=== PATIENT | female | born 1945 | race Caucasian/White ===

== ENCOUNTER → 2019-10-12 | Outpatient (CLI) | payer MEDICARE, OTHER ==
[2019-10-12 08:08] LABS: BASO % 0 % (0-3); EOS # 0.2 x10^3/uL (0.0-0.7); EOS % 3 % (0-3); HEMATOCRIT 44.7 % (36.0-47.0); HEMOGLOBIN 14.8 g/dL (12.0-15.5); LYMPH % 13 % (24-48); MEAN CORPUSCULAR HEMOGLOBIN 31 pg (25-35); MEAN CORPUSCULAR HGB CONC 33 g/dL (31-37); MEAN CORPUSCULAR VOLUME 94 fL (79-100); MONO # 0.7 x10^3/uL (0.0-1.1); MONO % 8 % (0-9); NEUT # 6.2 x10^3uL (1.8-7.7); NEUT % 76 % (31-73); PLATELET COUNT 202 x10^3/uL (140-400); RED BLOOD COUNT 4.76 x10^6/uL (3.50-5.40); RED CELL DISTRIBUTION WIDTH 13.2 % (11.5-14.5); WHITE BLOOD COUNT 8.2 x10^3/uL (4.0-11.0)
[2019-10-12 08:17] LABS: ALBUMIN 3.8 g/dL (3.4-5.0); ALBUMIN/GLOBULIN RATIO 1.1 (1.0-1.7); CALCIUM 9.2 mg/dL (8.5-10.1); CREATININE 0.8 mg/dL (0.6-1.0); GFR 70.1; POTASSIUM 4.5 mmol/L (3.5-5.1); TOTAL BILIRUBIN 0.7 mg/dL (0.2-1.0); TOTAL PROTEIN 7.3 g/dL (6.4-8.2)
--- NOTE | 2019-10-13 18:07 | RAD ---
Study: 2-D diagnostic mammogram-bilateral History: Routine screening. Technique: Bilateral digital mammographic routine views were obtained with CAD - computer aided detection. Comparison: 08/15/2016. Findings: Breast Tissue Density B :The breast tissue is composed of mixed fatty and fibroglandular tissue. No mass, architectural distortion or suspicious microcalcifications have developed in the interim. Impression: Negative mammogram. BI-RADS Category 1: Negative. Normal interval followup. The patient will receive a letter with the results in the mail. Patient information is entered into the reminder system with a target due date for the next screening mammogram. The patient will receive a reminder. "Our facility is accredited by the [employer] Mammography Program."
== END | disposition home or self-care (01) ==
LOC: MAMMO 07:31
PROVIDERS: ATTEND Family Medicine
DX: Z12.31 Encounter for screening mammogram for malignant neoplasm of breast (principal); Z00.00 Encounter for general adult medical examination without abnormal findings; K58.1 Irritable bowel syndrome with constipation; E78.00 Pure hypercholesterolemia, unspecified
CPT/HCPCS: 36415; 77067; 80053; 80061; 85025